=== PATIENT | male | born 1990 | race Caucasian/White ===

== ENCOUNTER 2021-04-28 14:29 | Emergency (ER) | payer OTHER, SELFPAY ==
[2021-04-28 14:50] VITALS: BP 124/60; PULSE 60; RESP 18; TEMP 37.1; O2SAT 100
--- NOTE | 2021-04-28 15:34 | ED.URI ---
HPI - URI/Sore Throat General Chief Complaint: Upper Respiratory Infection Stated Complaint: throat pain Time Seen by Provider: 04/28/21 15:34 Source: patient, RN notes reviewed and old records reviewed Mode of arrival: ambulatory Limitations: no limitations History of Present Illness HPI Narrative: 30-year-old male who presents to [facility] with complaints of symptoms since Saturday of itchy throat generalized aching he has had no fever and some sinus drainage with no cough noted. Patient states he has not had Covid vaccines or any flu vaccine.Patient reports that he has been taking some Tylenol for his symptoms with minimal improvement in throat pain. Patient denies any nausea, vomiting, or diarrhea. MD elicited complaint: cough, sore throat, rhinorrhea and nasal congestion Pertinent past history: other (Covid 12/2019) Onset (ago): day(s) (4) Related Data Allergies Allergy/AdvReac Type Severity Reaction Status Date / Time No Known Allergies Allergy Verified 04/28/21 14:50 Review of Systems Review of Systems: CONSTITUTIONAL: Denies fever, chills, or sweats. EYES: Denies visual changes, redness, or discharge. ENT: Positive rhinorrhea, congestion, sore throat, no otalgia. CARDIOVASCULAR: Denies chest pain, palpitations, or edema. RESPIRATORY: Denies cough or dyspnea. GASTROINTESTINAL: Denies abdominal pain, nausea, vomiting, or diarrhea. GENITOURINARY: Denies dysuria or hematuria. SKIN: Denies rash or itching. MUSCULOSKELETAL: Denies back pain, joint pain, mild body aches NEUROLOGIC: Denies headache, numbness, or weakness. PSYCHIATRIC: Denies anxiety or depression. All systems reviewed & are unremarkable except as noted in HPI and below PMFSH Past Medical History Medical History (Updated 04/28/21 @ 15:40 by Griselda Silva NP) COVID-19 12/2019 Sinus problem Surgical History Surgical History (Updated 04/28/21 @ 15:39 by Griselda Silva NP) History of tonsillectomy and adenoidectomy Social History Social History (Updated 04/28/21 @ 15:55 by Griselda Silva NP) Smoking status: Never smoker Alcohol intake: current Alcohol use details: Social Substance use: never Living arrangements: alone Gender identity (if verbalized by the patient): Male Comments At time of signature, agree with nursing past medical, surgical, social and family history. There is no relevant family history pertinent to the presenting complaint Exam Narrative: GENERAL: Well-appearing, well-nourished, and in no acute distress. HEAD: Normocephalic, atraumatic. EYES: PERRLA and EOMI. ENT: Nares mild redness with clear rhinorrhea no epistaxis. Mucous membranes moist.TM's normal with good light reflex, throat red with no lesions or exudates, no tonsils present. NECK: Supple. no lymphadenopathy CHEST: Clear to auscultation. No respiratory distress.SAO2 100% on room air HEART: Regular rate and rhythm. No murmur heard. Normal peripheral pulses. ABDOMEN: Soft, nontender, nondistended, normal active bowel sounds. EXTREMITIES: Normal range of motion. No edema. SKIN: Warm, dry, no rash. NEURO: No focal deficits. Alert and oriented x3. Course Course Level of Care: Express Care Visit Vital Signs Vital signs: Vital Signs Temperature 37.1 C 04/28/21 14:50 Pulse Rate 60 04/28/21 14:50 Respiratory Rate 18 04/28/21 14:50 Blood Pressure 124/60 04/28/21 14:50 Pulse Oximetry 100 04/28/21 14:50 Temperature 37.1 C 04/28/21 14:50 Pulse Rate 60 04/28/21 14:50 Respiratory Rate 18 04/28/21 14:50 Blood Pressure 124/60 04/28/21 14:50 Pulse Oximetry 100 04/28/21 14:50 MDM - URI/Sore Throat Differential Diagnosis Differential diagnosis: Likely upper respiratory infection, sinusitis, viral infection, pharyngitis and other (Covid) Medical Records Attestation: I reviewed the patient's medical records. Lab Data Attestation: I reviewed the patient's lab results. Lab results narrative: Strep screen negative
== END 2021-04-28 16:09 | disposition home or self-care (01) ==
PROVIDERS: Emergency Provider Registered Nurse
DX: U07.1 COVID-19 (principal)
CPT/HCPCS: 87081; 87426; 87880; 99203; C9803; G0463

== ENCOUNTER 2021-08-07 11:20 | Emergency (ER) | payer OTHER, SELFPAY ==
[2021-08-07 11:35] VITALS: BP 115/69; PULSE 58; RESP 16; TEMP 37.1; O2SAT 100
--- NOTE | 2021-08-07 11:45 | ED.MALEGU ---
HPI - Male Genitourinary General Chief complaint: Urogenital-Male Stated complaint: uti complaint Time Seen by Provider: 08/07/21 12:15 Mode of arrival: ambulatory Limitations: no limitations History of Present Illness HPI Narrative: 31-year-old male presents with concern for possible STD. Reports he was treated in June for an STD with doxycycline and Rocephin. He reports symptoms improved. He reports he began having dysuria with occasional twinge of left Giller pain. He is not currently having testicular pain. He denies testicular redness, swelling. Denies penile discharge, abdominal pain, vomiting or fever. He denies lesions or rash. MD Complaint: dysuria Related Data Allergies Allergy/AdvReac Type Severity Reaction Status Date / Time No Known Allergies Allergy Verified 08/07/21 11:54 Review of Systems Review of Systems: CONSTITUTIONAL: Denies malaise, chills, sweats, or fever. GASTROINTESTINAL: Denies abdominal pain, nausea, vomiting GENITOURINARY: Reports dysuria. Denies frequency, urgency, penile pain, penile discharge, lesions, hematuria. He reports occasional left testicular pain. Denies testicular redness, swelling SKIN: Denies rash or itching. MUSCULOSKELETAL: Denies back pain or myalgia. All systems reviewed & are unremarkable except as noted in HPI and below PMFSH Past Medical History Medical History (Updated 08/07/21 @ 12:33 by Neetu Perrin NP) COVID-19 12/2019 Sinus problem Surgical History Surgical History (Updated 04/28/21 @ 15:39 by Griselda Silva NP) History of tonsillectomy and adenoidectomy Social History Social History (Updated 04/28/21 @ 15:55 by Griselda Silva NP) Smoking status: Never smoker Alcohol intake: current Alcohol use details: Social Substance use: never Gender identity (if verbalized by the patient): Male Comments At time of signature, agree with nursing past medical, surgical, social and family history. There is no relevant family history pertinent to the presenting complaint Exam Narrative: GENERAL: Well-appearing, well-nourished, and in no acute distress. HEAD: Normocephalic. EYES: PERRLA, conjunctivae clear. NECK: Supple. No lymphadenopathy CHEST: Clear to auscultation. No respiratory distress. HEART: Regular rate and rhythm. SKIN: Warm, dry, no visible rash. NEURO: Alert and oriented x3. PSYCH: Normal mood and affect Course Course Emergency Course: Patient is aware of diagnosis, understands and agrees to treatment plan. Anticipatory guidance given. Patient agrees to follow-up as directed and is aware of reasons to seek care at the emergency department. Portions of this record may have been created with voice recognition software Level of Care: Express Care Visit Vital Signs Vital signs: Reviewed. MDM - Male Genitourinary MDM Narrative Medical decision making narrative: Exam findings and UA show no acute concerns or changes; patient is non-toxic appearing and is in no distress. Patient is appropriate for outpatient treatment and follow-up. Differential Diagnosis Differential diagnosis: Likely urinary tract infection, urethritis, epididymitis and prostatitis Critical Care Time Critical Care Time Critical Care Time: No Discharge Plan Discharge Clinical Impression: Possible exposure to STD Patient Disposition: Home, Self-Care Condition: Stable Instructions: Antibiotic Form, Safe Sex Practices (ED) Additional Instructions: You have been tested for potential gonorrhea, chlamydia, and trichomoniasis today. You have received antibiotics to treat gonorrhea and chlamydia today, a prescription has been called into your pharmacy to treat trichomoniasis. You will receive a phone call in 2-3 days with the results of today's testing. It is very important that you avoid unprotected intercourse during treatment and for 7 days AFTER TREATMENT is complete and until your partner(s) have been treated. Please encourage your partn
[2021-08-07] MEDS: AZITHROMYCIN 250 MG TABLET 1000 MG PO (12:34)
[2021-08-07] MEDS: cefTRIAXone 500 MG, LIDOCAINE HCL 1% LOCAL INJ 1 ML IM (12:35)
== END 2021-08-07 12:45 | disposition home or self-care (01) ==
PROVIDERS: Emergency Provider Nurse Practitioner
DX: R30.0 Dysuria (principal); Z86.16 Personal history of COVID-19
CPT/HCPCS: 81003; 87491; 87591; 87661; 96372; 99213; A9270; G0463; J0696